=== PATIENT | female | born 1985 | race Caucasian/White ===

== ENCOUNTER 2017-08-21 19:44 | Emergency (ER) | END 2017-08-22 00:06 | disposition home or self-care (01) ==

== ENCOUNTER 2017-12-01 01:23 | Emergency (ER) | END 2017-12-01 05:14 | disposition home or self-care (01) ==

== ENCOUNTER 2017-12-31 19:19 | Emergency (ER) | END 2017-12-31 23:45 | disposition home or self-care (01) ==

== ENCOUNTER 2018-01-02 02:29 | Emergency (ER) | END 2018-01-02 03:22 | disposition home or self-care (01) ==

== ENCOUNTER 2018-01-21 18:33 | Emergency (ER) | END 2018-01-21 19:00 | disposition left against medical advice (07) ==

== ENCOUNTER 2018-02-23 23:15 | Emergency (ER) | END 2018-02-24 03:03 | disposition home or self-care (01) ==

== ENCOUNTER 2018-06-05 15:36 | Emergency (ER) | END 2018-06-05 18:57 | disposition home or self-care (01) ==

== ENCOUNTER 2018-12-16 00:38 | Emergency (ER) | payer SELFPAY ==
[~2018-12-16] VITALS: Ht 157.5 cm; Wt 67.2 kg
[~2018-12-16 00:38] MED LIST: INSU100I33 SC; LACT1CAP28 PO; LEVO750T8 PO; METF-849 PO; NEED-135 MC; SITA100T11 PO
[2018-12-16 00:42] VITALS: BP 138/72; PULSE 80; RESP 18; Ht 157.5 cm; Wt 67.2 kg
== END 2018-12-16 06:21 | disposition left against medical advice (07) ==
LOC: FTE 00:38
DX: Z53.21 Procedure and treatment not carried out due to patient leaving prior to being seen by health care provider (principal)

== ENCOUNTER 2018-12-23 23:15 | Emergency (ER) | payer OTHER ==
[~2018-12-23] VITALS: Ht 157.5 cm; Wt 67.6 kg
[2018-12-23 23:17] VITALS: Ht 157.5 cm; Wt 67.6 kg
[2018-12-24] MEDS ORDERED: ONDANSETRON 4 MG INJ IV STA (03:44)
[2018-12-24] MEDS ORDERED: KETOROLAC 30 MG INJ IV STA (03:44)
[2018-12-24] MEDS ORDERED: SOD CHLORIDE 0.9% 1,000 ML IV ONE (04:00)
[2018-12-24] MEDS ORDERED: morphine 2 MG INJ IV STA (04:37)
[2018-12-24] MEDS ORDERED: TRAM50TA2 PO (05:07)
[2018-12-24] MEDS ORDERED: ACET500C5 PO (05:07)
--- NOTE | 2018-12-24 05:09 | ERD ---
ER Documentation Chief Complaint Chief Complaint AP, VOMITING X'S 5 DAYS HPI 33-year-old female presents with complaint of pelvic pain and vomiting over the past 5 days. Pain localized to right pelvic region. She otherwise denies fevers, chills, persistent nausea, diarrhea, vaginal bleeding or discharge. Last menstrual period reported as normal. ROS All systems reviewed and are negative except as per history of present illness. Medications Home Meds Active Scripts Acetaminophen* (Tylophen*) 500 Mg Capsule, 1 CAP PO Q6H PRN for PAIN AND OR ELEVATED TEMP, #20 CAP Prov:FRANKLYN SHULTZ PA-C 12/24/18 Tramadol HCl (Tramadol HCl) 50 Mg Tablet, 50 MG PO Q4 PRN for PAIN, #20 TAB Prov:FRANKLYN SHULTZ PA-C 12/24/18 Sitagliptin* (Januvia*) 100 Mg Tablet, 100 MG PO DAILY for 30 Days, #30 TAB 6 Refills Prov:LATISHA LOMBARDO MD 08/05/18 Ernest, Insulin Disposable (Zuleyma Pen Needle) 1 Each Dis.needle, EACH MC DAILY, #120 6 Refills Prov:LATISHA LOMBARDO MD 08/05/18 Levofloxacin* (Levofloxacin*) 750 Mg Tablet, 750 MG PO DAILY for 10 Days, #10 TAB Prov:LATISHA LOMBARDO MD 08/05/18 Insulin Glargine,Hum.rec.anlog (Basaglar Kwikpen U-100) 100 Unit/1 Ml Insuln.pen, 18 UNIT SC DAILY for 30 Days, #10 EA 6 Refills Prov:LATISHA LOMBARDO MD 08/05/18 Lactobacillus Rhamnosus GG (Culturelle) 1 Each Capsule, 1 CAP PO WITH MEALS for 30 Days, #90 CAP 1 Refill Prov:LATISHA LOMBARDO MD 08/05/18 Metformin* (Glucophage*) 500 Mg Tab, 500 MG PO BID for 30 Days, #60 TAB 6 Refills Prov:LATISHA LOMBARDO MD 08/05/18 Allergies Allergies: Coded Allergies: naproxen (Unverified Allergy, Unknown, RASH, 12/24/18) PMhx/Soc History of Surgery: Yes (ovarian cyst removed) Anesthesia Reaction: No Hx Neurological Disorder: No Hx Respiratory Disorders: No Hx Cardiac Disorders: No Hx Psychiatric Problems: No Hx Miscellaneous Medical Probl: Yes Hx Alcohol Use: No Hx Substance Use: No Hx Tobacco Use: No Smoking Status: Never smoker FmHx Family History: No diabetes, No coronary disease, No other Physical Exam Vitals Physical Exam Const: No acute distress Head: Atraumatic Eyes: Normal Conjunctiva ENT: Normal External Ears, Nose and Mouth. Neck: Full range of motion. No meningismus. Resp: Clear to auscultation bilaterally Cardio: Regular rate and rhythm, no murmurs Abd: Soft, non tender, non distended. Normal bowel sounds Skin: No petechiae or rashes Back: No midline or flank tenderness Ext: No cyanosis, or edema Neur: Awake and alert Psych: Normal Mood and Affect Results 24 hrs Laboratory Tests Test 12/24/18 03:58 12/24/18 03:59 White Blood Count 7.7 10^3/ul Red Blood Count 5.08 10^6/ul Hemoglobin 13.9 g/dl Hematocrit 41.6 % Mean Corpuscular Volume 81.9 fl Mean Corpuscular Hemoglobin 27.4 pg Mean Corpuscular Hemoglobin Concent 33.4 g/dl Red Cell Distribution Width 13.9 % Platelet Count 324 10^3/UL Mean Platelet Volume 11.3 fl Immature Granulocytes % 0.400 % Neutrophils % 49.4 % Lymphocytes % 40.6 % Monocytes % 8.2 % Eosinophils % 1.0 % Basophils % 0.4 % Nucleated Red Blood Cells % 0.0 /100WBC Immature Granulocytes # 0.030 10^3/ul Neutrophils # 3.8 10^3/ul Lymphocytes # 3.1 10^3/ul Monocytes # 0.6 10^3/ul Eosinophils # 0.1 10^3/ul Basophils # 0.0 10^3/ul Nucleated Red Blood Cells # 0.0 10^3/ul Urine Color STRAW Urine Clarity CLEAR Urine pH 5.0 Urine Specific [place] 1.035 Urine Ketones NEGATIVE mg/dL Urine Nitrite NEGATIVE mg/dL Urine Bilirubin NEGATIVE mg/dL Urine Urobilinogen NEGATIVE mg/dL Urine Leukocyte Esterase NEGATIVE Jaime/ul Urine Hemoglobin NEGATIVE mg/dL Urine Glucose 3+ mg/dL Urine Total Protein NEGATIVE mg/dl Sodium Level 139 mmol/L Potassium Level 4.2 mmol/L Chloride Level 102 mmol/L Carbon Dioxide Level 27 mmol/L Anion Gap 10 Blood Urea Nitrogen 13 mg/dl Creatinine 0.50 mg/dl Est Glomerular Filtrat Rate mL/min > 60 mL/min Glucose Level 376 mg/dl Calcium Level 9.6 mg/dl Total Bilirubin 0.4 mg/dl Direct Bilirubin 0.00 mg/dl Indirect Bilirubin 0.4 mg/dl Aspartate Amino Transf (AST/SGOT) 45 IU/L Alanine Aminotransferase (ALT/SGPT) 25 IU/L Alkaline Phosphatase 107 IU/L Total Protein 8.1 g/dl Albumin 4.2 g/dl Globulin 3.90 g/dl Albumin/Globulin Ratio 1.07 Lipase 57 U/L POC Beta HCG, Qualitative NEGATIVE Current Medications Medications Dose Sig/Addie Start Time Status Last (Trade) Ordered Route PRN Stop Time Admin Dose Reason Admin Ondansetron 4 mg ONCE STAT 12/24/18 DC 12/24/18 HCl (Zofran IV 03:44 04:03 Inj) 12/24/18 03:48 Ketorolac 30 mg ONCE STAT 12/24/18 DC 12/24/18 Tromethamine IV 03:44 04:04 (Toradol) 12/24/18 03:48 Sodium 1,000 ml @ Q1H ONCE 12/24/18 DC 12/24/18 Chloride 1,000 mls/hr IV 04:00 04:04 12/24/18 04:59 Morphine 1 mg ONCE STAT 12/24/18 DC 12/24/18 Sulfate IV 04:37 04:45 (morphine) 12/24/18 04:38 Procedures/MDM 33-year-old non female presents with complaint of pelvic pain. ED course: Pelvic ultrasound 1. Mild endometrial thickening measuring 1.7 cm with some heterogeneity but no focal vascularity. This may be related to phase of menstrual cycle though a follow-up ultrasound is suggested in 6 weeks to assess stability. 2. 4.4 x 4.7 x 4.3 cm right ovarian cyst is noted. 3. Left ovary is not identified. Labs unremarkable UA unremarkable DISPOSITION PLAN: We discussed follow up with the patient's primary care doctor within 24 to 48 hours. Patient counseled regarding my diagnostic impression and care plan. Prior to discharge all questions answered. Pt agrees with treatment plan and understa nds strict return precautions. Precautionary instructions provided including instructions to return to the ER if not improving or for any worsening or changing symptoms or concerns. Disclaimer: Inadvertent spelling and grammatical errors are likely due to EHR/dictation software use and do not reflect on the overall quality of patient care. Also, please note that the electronic time recorded on this note does not necessarily reflect the actual time of the patient encounter. Departure Diagnosis: Primary Impression: Pelvic pain Condition: Stable Patient Instructions: Pelvic Pain, Unknown Cause Referrals: [facility] YOU HAVE RECEIVED A MEDICAL SCREENING EXAM AND THE RESULTS INDICATE THAT YOU DO NOT HAVE A CONDITION THAT REQUIRES URGENT TREATMENT IN THE EMERGENCY DEPARTMENT. FURTHER EVALUATION AND TREATMENT OF YOUR CONDITION CAN WAIT UNTIL YOU ARE SEEN IN YOUR DOCTORS OFFICE WITHIN THE NEXT 1-2 DAYS. IT IS YOUR RESPONSIBILITY TO MAKE AN APPOINTMENT FOR FOLOW-UP CARE. IF YOU HAVE A PRIMARY DOCTOR --you should call your primary doctor and schedule an appointment IF YOU DO NOT HAVE A PRIMARY DOCTOR YOU CAN CALL OUR PHYSICIAN REFERRAL HOTLINE AT IF YOU CAN NOT AFFORD TO SEE A PHYSICIAN YOU CAN CHOSE FROM THE FOLLOWING [facility] [address] [facility]. [facility] [address] [facility] [facility] [address] [facility] [address] [facility] [address] [facility]. [facility]. [address] Additional Instructions: Call your primary care doctor TOMORROW for an appointment during the next 2-3 days.See the doctor sooner or return here if your condition worsens before your appointment time. Assumed care of patient at 0600. Awaiting ultrasound results. Patient c ontinues to complain of mild left lower quadrant/suprapubic pain. She is requesting pain medication. Discussed with patient need for ultrasound results prior to determination of pain management. Patient agreeable with that plan. Patient in no acute distress. 0720 ultrasound results negative for torsion, ruptured cyst, neoplasm. Beta hCG negative for therefore low suspicion for ectopic . Small right ovarian cyst noted. Left ovary not visualized on ultrasound. Bimanual exam negative for palpation of right or left mass, no CMT, no blood, no unusual discharge or odor noted. Results discussed with patient who is agreeable and comfortable with discharge to follow-up with OB. Patient instructed to return to the emergency room with worsening or changing of symptoms including fever, vaginal bleeding, severe abdominal pain. FRANKLYN SHULTZ PA-C Dec 24, 2018 05:08 ELIAS RDZ NP Dec 24, 2018 07:30
[2018-12-24 07:25] VITALS: BP 105/58; PULSE 77; RESP 18
== END 2018-12-24 07:26 | disposition home or self-care (01) ==
LOC: FTE 23:15
DX: R10.2 Pelvic and perineal pain (principal)
CPT/HCPCS: 76830; 76856; 80053; 81003; 81025; 83690; 85025; J1885; J2270; J2405; J7030; 36415; 96361; 96374; 96375